=== PATIENT | male | born 1960 | race Caucasian/White ===

== ENCOUNTER 2018-12-04 11:30 | Emergency (ER) | payer OTHER ==
[~2018-12-04] VITALS: Ht 182.9 cm; Wt 113.0 kg
[2018-12-04 11:38] VITALS: BP 139/93
[2018-12-04] MEDS ORDERED: LIDOCAINE-MPF 1%, 5ML ONE (11:59)
[2018-12-04] MEDS ORDERED: LIDOCAINE-MPF 1%, 5ML INFIL ONE (13:00)
== END 2018-12-04 13:10 | disposition home or self-care (01) ==
LOC: ED 13:00
DX: S51.032A Puncture wound without foreign body of left elbow, initial encounter (principal); W20.8XXA Other cause of strike by thrown, projected or falling object, initial encounter; Y93.89 Activity, other specified; Y92.009 Unspecified place in unspecified non-institutional (private) residence as the place of occurrence of the external cause; Y99.8 Other external cause status
CPT/HCPCS: 99283